=== PATIENT | female | born 1950 | race Caucasian/White ===

== ENCOUNTER → 2016-11-11 | Outpatient (REF) ==
[~2016-11-11] MED LIST: CLARITIN 1010 MG/TAB PO; GLUCOSAMINE; LISINOPRIL10 MG PO; LOVASTATIN20 MG PO; LYRICA100 MG PO; MVI; ORPHENADRINE C100 MG PO; SYNTHROID PO; WELLBUTRIN 100100 MG PO; ZOLOFT100 MG PO
== END ==
LOC: ZLAB.WCH 20:41
DX: Z01.89 Encounter for other specified special examinations (principal)

== ENCOUNTER → 2020-10-24 | Outpatient (CLI) | payer MEDICARE, OTHER | LOC: COL.RAD 07:16 | DX: K80.20 Calculus of gallbladder without cholecystitis without obstruction (principal); K76.0 Fatty (change of) liver, not elsewhere classified ==

== ENCOUNTER → 2021-04-11 | Outpatient (CLI) | payer MEDICARE, OTHER | LOC: DIA.ED 07:28 | DX: R73.03 Prediabetes (principal); E78.5 Hyperlipidemia, unspecified | CPT/HCPCS: G0108 ==

== ENCOUNTER → 2021-04-26 | Outpatient (CLI) | payer MEDICARE, OTHER | LOC: DIA.ED 08:17 | DX: R73.03 Prediabetes (principal); I10 Essential (primary) hypertension; E78.5 Hyperlipidemia, unspecified ==